=== PATIENT | female | born 1990 | race African-American/Black ===

== ENCOUNTER 2023-10-20 17:02 | Emergency (ER) | payer OTHER ==
[~2023-10-20] VITALS: Ht 167.6 cm; Wt 67.0 kg
[2023-10-20 17:08] VITALS: O2SAT 100
[2023-10-20] MEDS: ONDANSETRON 4MG ODT PO ONE (17:25)
[2023-10-20] MEDS: ACETAMINOPHEN 325MG TABLET PO ONE (17:25)
[2023-10-20] MEDS ORDERED: BENZ200C52 MT (17:57)
[2023-10-20 18:25] VITALS: BP 116/65; PULSE 87; RESP 18; TEMP 99.2
== END 2023-10-20 18:27 | disposition home or self-care (01) ==
LOC: ER 17:02
DX: J06.9 Acute upper respiratory infection, unspecified (principal)
CPT/HCPCS: 99283; 81025; Q0162